=== PATIENT | male | born 1990 | race African-American/Black ===

== ENCOUNTER 2017-10-25 21:44 | Emergency (ER) | payer OTHER ==
[~2017-10-25] VITALS: Ht 188 cm; Wt 102.1 kg
[2017-10-25 21:47] VITALS: BP 140/87
== END 2017-10-25 22:27 | disposition home or self-care (01) ==
LOC: ER 21:46
DX: M25.511 Pain in right shoulder (principal); Z88.0 Allergy status to penicillin; Z88.6 Allergy status to analgesic agent
CPT/HCPCS: 99282; A4606; Z7610

== ENCOUNTER 2017-11-01 11:57 | Outpatient (CLI) | payer OTHER ==
[2017-11-01 12:41] LABS: APPEARANCE,URINE SL CLOUDY (CLEAR); BILIRUBIN,URINE NEGATIVE (NEGATIVE); BLOOD, URINE NEGATIVE Ery/uL (NEGATIVE); COLOR,URINE YELLOW (YELLOW); KETONES,URINE NEGATIVE (NEGATIVE); LEUKOCYTE ESTERASE ,URINE NEGATIVE (NEGATIVE); NITRITE, URINE NEGATIVE (NEGATIVE); PROTEIN,URINE NEGATIVE (NEGATIVE); UGLUCOSE NEGATIVE (NEGATIVE)
[2017-11-01 12:43] LABS: BASOPHILS % (AUTO) 0.5 % (0.0-2.0); EOSINOPHILS % (AUTO) 1.5 % (0.0-6.0); HEMATOCRIT 48 % (39-51); HEMOGLOBIN 15.5 g/dL (13.5-17.5); LYMPHOCYTES # (AUTO) 2.5 /CMM (0.8-4.8); MEAN CORPUSCULAR HEMOGLOBIN 31 PG (26.0-33.0); MEAN CORPUSCULAR HGB CONC 33 g/dl (31.0-36.0); MEAN CORPUSCULAR VOLUME 97 fL (80-96); MONOCYTES # (AUTO) 0.4 /CMM (0.1-1.30); MONOCYTES % (AUTO) 7.2 % (2.0-12.0); NEUTROPHILS # (AUTO) 2.5 /CMM (1.8-8.9); NEUTROPHILS % (AUTO) 45.8 % (43.0-81.0); PLATELET COUNT (AUTO) 310 /CMM (150-450); RDW COEFFICIENT OF VARIATION 13.5 (11.5-15.0); RED BLOOD CELL COUNT(AUTO) 4.95 MIL/uL (4.5-6.0); WHITE BLOOD COUNT (AUTO) 5.5 K/uL (4.3-11.0)
[2017-11-01 12:55] LABS: BILIRUBIN,TOTAL 0.5 mg/dL (0.2-1.0); CALCIUM, SERUM 8.5 mg/dL (8.5-10.1); CREATININE 1.5 mg/dL (0.6-1.3); POTASSIUM 4.3 mmol/L (3.5-5.1); TOTAL PROTEIN, SERUM 7.8 g/dL (6.4-8.2)
[2017-11-01 12:56] LABS: BACTERIA,URINE Few /HPF (None Seen); MUCUS,URINE Rare /LPF (None Seen); RBC,URINE 0-2 /HPF (0-2); SQUAMOUS EPITHELIAL CELL,UR Rare /HPF (None Seen)
[2017-11-01 12:59] LABS: INR 1.02 (0.87-1.13)
== END 2017-11-01 23:59 | disposition home or self-care (01) ==
LOC: LAB 11:57
PROVIDERS: ATTEND Student in an Organized Health Care Education/Training Program
DX: Z01.818 Encounter for other preprocedural examination (principal); M25.811 Other specified joint disorders, right shoulder
CPT/HCPCS: 36415; 80053-TC; 81000-TC; 85025-TC; 85610-TC; 85730-TC; 87086-TC

== ENCOUNTER → 2017-11-03 | Day surgery (SDC) | payer OTHER ==
[~2017-11-03] MED LIST: ANESTHESIA TRAY IN PYXIS 1 EA TRAY MC ONE; BACITRACIN 50000 UNITS/VIAL ONE; BUPIVACAINE MPF 0.5% W/EPI INJ 30 ML VIAL ONE; BUPIVACAINE MPF 0.75% 30 ML VIAL ONE; CEFAZOLIN SODIUM/DEXTROSE,ISO 50 ML IV ONE; CLINDAMYCIN 900 MG/6 ML VIAL ONE; EPINEPHRINE (1:1000) MDV 30 MG/30ML VIAL ONE; FENTANYL PF 100MCG/2ML AMPUL ONE; HYDROCODONE/APAP 10/325MG 1 EA TABLET PO PRN; MIDAZOLAM HCL 2 MG/2ML VIAL ONE
== END | disposition home or self-care (01) ==
LOC: DS 05:51
PROVIDERS: ATTEND Student in an Organized Health Care Education/Training Program
DX: S43.491A Other sprain of right shoulder joint, initial encounter (principal); M67.813 Other specified disorders of tendon, right shoulder; M75.41 Impingement syndrome of right shoulder; X58.XXXA Exposure to other specified factors, initial encounter; Y93.89 Activity, other specified; Y92.89 Other specified places as the place of occurrence of the external cause; Y99.8 Other external cause status; M25.511 Pain in right shoulder; Z88.6 Allergy status to analgesic agent; Z88.0 Allergy status to penicillin; Z79.899 Other long term (current) drug therapy; Z98.890 Other specified postprocedural states
CPT/HCPCS: 29823; 29826; 64415; 88304; 88311; A4217; A6402; J0171; J0690; J1100; J1885; J2001; J2250; J2704; J3490 ×5; Z7610; J3010